=== PATIENT | female | born 1990 | race Caucasian/White ===

== ENCOUNTER 2019-05-27 16:43 | Outpatient (CLI) | payer OTHER ==
[2019-05-27] MEDS ORDERED: Sodium Chloride 0.9% 10 ML Syringe FLUSH PRN (16:54)
--- NOTE | 2019-05-27 18:22 | PCM.SN ---
- Free Text/Narrative Note: 05/27/19 Bryant Madison MD 29 yo who is 11 months post- has had uterine bleeding for 11 months presented to clinic today for weakness, dyspnea, Hgb 8.6 symptomatic anemia, menorrhagia. Lungs clear, heart RRR. She is medically stable to receive 2 units PRBCs as out-patient.
[2019-05-27] MEDS: Sodium Chloride 0.9% 250 ML IV SCH (19:30)
== END 2019-05-28 01:00 | disposition home or self-care (01) ==
LOC: LL.ACU 16:43
PROVIDERS: ATTEND Family Medicine
DX: D50.0 Iron deficiency anemia secondary to blood loss (chronic) (principal); N92.0 Excessive and frequent menstruation with regular cycle; N93.9 Abnormal uterine and vaginal bleeding, unspecified; R06.00 Dyspnea, unspecified; R53.1 Weakness
CPT/HCPCS: 36415; 36430; 85014; 85018; 86850; 86900; 86901; 86920; 86922; J7050; P9016